=== PATIENT | male | born 1975 | race Caucasian/White ===

== ENCOUNTER 2023-11-19 15:02 | Inpatient (IN) | payer BC ==
[2023-11-19] MEDS ORDERED: Ondansetron ODT 4 MG TAB PO PRN (17:12)
[2023-11-19] MEDS ORDERED: Acetaminophen 650 MG Suppository PR PRN (17:12)
[2023-11-19] MEDS ORDERED: Ondansetron PF 4 MG/2 ML Vial IVP PRN (17:12)
[2023-11-19] MEDS ORDERED: Acetaminophen 325 MG TAB PO PRN (17:12)
[2023-11-19 18:41] VITALS: BMI 25.1
[2023-11-19 18:52] LABS: #Monocytes 0.3 10x3/uL (0.0-1.1); #Neutrophils 4.3 10x3/uL (1.5-8.4); %Basophils 0.4 % (0.0-2.0); %Eosinophils 0.4 % (0.0-6.0); %Monocytes 6.8 % (0.0-10.0); %Neutrophils 85.6 % (40.0-75.0); Hematocrit 28.3 % (38.8-50.0); Hemoglobin 8.9 g/dL (13.5-17.5); Mean Corpuscular HGB CONC 31.4 g/dL (32.0-36.0); Mean Corpuscular Hemoglobin 33.1 pg (27.0-33.0); Mean Corpuscular Volume 105.2 fl (81.2-95.1); Mean Platelet Volume 8.9 fl (7.4-10.4); Platelet Count 85 10x3/uL (150-450); RBC Distribution Width 19.9 % (11.5-14.5); Red Blood Cell (RBC) Count 2.69 10x6/uL (4.32-5.72)
[2023-11-19] MEDS: cefTRIAXone\\ROCEPHIN 1 GM in Sodium Chloride 0.9% 100 ML IVPB SCH (19:08)
[2023-11-19 19:12] LABS: Anisocytosis SLIGHT = 6-15 cells (100X) (0-5/hpf); Hypochromia SLIGHT = 6-15 cells (100X) (0-5/hpf); Macrocytosis SLIGHT = 6-15 cells (100X) (0-5/hpf); Polychromasia SLIGHT = 2-3 cells (100X) (0-2/hpf)
[2023-11-19 19:13] LABS: Platelet Adequacy Comment Platelets Decreased; Tear Drops SLIGHT = 2-5 cells (100X) (0-1/hpf)
[2023-11-19] MEDS: Octreotide Acetate 1,250 MCG in Sodium Chloride 0.9% 250 ML 250 ML IVPB SCH (20:06)
[2023-11-19] MEDS: Pantoprazole 40 MG VIAL IVP SCH (20:20)
[2023-11-19] MEDS: Lactulose 20 GM (30 mL) UDCUP PO SCH (20:20)
[2023-11-20 03:25] LABS: #Monocytes 0.2 10x3/uL (0.0-1.1); %Basophils 0.4 % (0.0-2.0); %Eosinophils 1.5 % (0.0-6.0); %Lymphocytes 11.9 % (18.0-47.0); %Monocytes 8.8 % (0.0-10.0); %Neutrophils 77.4 % (40.0-75.0); Hematocrit 24.9 % (38.8-50.0); Hemoglobin 7.8 g/dL (13.5-17.5); Mean Corpuscular HGB CONC 31.3 g/dL (32.0-36.0); Mean Corpuscular Hemoglobin 33.3 pg (27.0-33.0); Mean Corpuscular Volume 106.4 fl (81.2-95.1); Mean Platelet Volume 9.6 fl (7.4-10.4); Platelet Count 63 10x3/uL (150-450); RBC Distribution Width 20.1 % (11.5-14.5); Red Blood Cell (RBC) Count 2.34 10x6/uL (4.32-5.72); White Blood Cell (WBC) Count 2.6 10x3/uL (3.5-10.5)
[2023-11-20 03:49] LABS: ALT (SGPT) 27 U/L (8-55); AST (SGOT) 21 U/L (5-34); Albumin 2.8 g/dL (3.5-5.0); Alkaline Phosphatase 148 U/L (40-110); Anion Gap 14 mmol/L (10-20); BUN (Urea Nitrogen) 26 mg/dL (8.9-20.6); Bilirubin, Total 1.4 mg/dL (0.2-1.2); Calc. Creatinine Clearance 73 mL/min (70-130); Calcium 8.2 mg/dL (7.8-10.44); Carbon Dioxide 18 mmol/L (22-29); Chloride 109 mmol/L (98-107); Estimated GFR 76; Globulin 2.8 g/dL (2.4-3.5); Glucose 103 mg/dL (70-105); Potassium 4.3 mmol/L (3.5-5.1); Protein, Total 5.6 g/dL (6.0-8.3); Sodium 137 mmol/L (136-145)
[2023-11-20] MEDS ORDERED: FLU VACC QS2023-24(6MOS UP)/PF 60 MCG/0.5 ML SYRINGE IM ONE (04:30)
[2023-11-20] MEDS: Nadolol 40 MG TAB PO SCH (22:45)
[2023-11-20] MEDS: Dextrose 5 %-0.45 % NaCl 1,000 ML IV SCH (22:46)
[2023-11-21 07:42] VITALS: BP 103/80; TEMP 98.9
[2023-11-21 10:41] LABS: Hemoglobin 7.6 g/dL (13.5-17.5)
== END 2023-11-21 11:13 | disposition home or self-care (01) | DRG 442 ==
LOC: CSHIMCU 17:06
PROVIDERS: ADMIT Emergency Medicine; ATTEND Family Medicine
DX: K76.82 Hepatic encephalopathy (principal); I85.10 Secondary esophageal varices without bleeding; N17.9 Acute kidney failure, unspecified; R18.8 Other ascites; K92.1 Melena; K76.0 Fatty (change of) liver, not elsewhere classified; K74.60 Unspecified cirrhosis of liver; D64.9 Anemia, unspecified; N18.9 Chronic kidney disease, unspecified; K31.819 Angiodysplasia of stomach and duodenum without bleeding; Z98.890 Other specified postprocedural states; Z90.49 Acquired absence of other specified parts of digestive tract; Z79.899 Other long term (current) drug therapy
CPT/HCPCS: 36415; 80053; 85014; 85018; 85025; 86850; 86900; 86901; 94760; 94762; C9113; J0696; J2354; J3490; J7042; J7050